=== PATIENT | female | born 1955 | race Caucasian/White ===

== ENCOUNTER 2019-01-06 10:13 | Emergency (ER) | payer MEDICARE, OTHER ==
[~2019-01-06] VITALS: Ht 167.6 cm; Wt 63.5 kg
[2019-01-06] MEDS ORDERED: ONDANSETRON HCL 4MG/2ML INJ IV ONE (10:30)
[2019-01-06] MEDS ORDERED: SODIUM CHLORIDE 0.9% 1,000 ML IV ONE (10:30)
[2019-01-06] MEDS ORDERED: KETOROLAC 30MG/ML VIAL IV STA (10:30)
[2019-01-06 11:56] LABS: HEMATOCRIT. 38.8 % (36.0-48.0); HEMOGLOBIN. 12.4 g/dL (12.0-16.0); MEAN CORPUSCULAR HEMOGLOBIN 27.7 pg (28.0-32.0); MEAN CORPUSCULAR VOLUME 86.8 fL (81.0-99.0); MEAN PLATELET VOLUME 8.4 fl (7.4-10.4); PLATELET 343 x1000/uL (130-400); RED BLOOD CELL COUNT 4.47 mill/uL (4.2-5.4); RED CELL DISTRIBUTION WIDTH 15.6 % (11.6-14.6)
[2019-01-06 12:02] LABS: CHLORIDE 109 mEq/L (98-107)
[2019-01-06 12:12] LABS: PLATELET ESTIMATE NORMAL
[2019-01-06 14:37] LABS: CLARITY URINE CLOUDY (CLEAR); COLOR URINE YELLOW (YELLOW); KETONES URINE NEGATIVE (NEGATIVE); LEUKOCYTE ESTERASE URINE NEGATIVE (NEGATIVE); NITRITE URINE NEGATIVE (NEGATIVE); OCCULT BLOOD URINE TRACE (NEGATIVE); PROTEIN URINE 1+ (NEGATIVE); SPECIFIC GRAVITY URINE 1.019 (1.005-1.030); UROBILINOGEN URINE 0.2 E.U./dL (0.2-1.0)
[2019-01-06 16:00] VITALS: BP 159/68
== END 2019-01-06 16:00 | disposition home or self-care (01) ==
LOC: ER 10:13
DX: N10 Acute pyelonephritis (principal)
CPT/HCPCS: 36415; 74176; 80053; 81003; 83690; 85025; 96361; 96374; 96375; 99284; J1885; J2405; J7030

== ENCOUNTER 2019-08-03 13:50 | Emergency (ER) | payer MEDICAID, MEDICARE, OTHER ==
[~2019-08-03] VITALS: Ht 170.2 cm; Wt 73.0 kg
[2019-08-03] MEDS ORDERED: ENALAPRIL 2.5MG/2ML VIAL 2ML IV ONE (14:15)
[2019-08-03 14:21] LABS: BASOPHILS % 0.7 % (0.0-2.0); EOSINOPHILS % 2.6 % (0.0-5.0); HEMATOCRIT. 31.4 % (36.0-48.0); HEMOGLOBIN. 10.6 g/dL (12.0-16.0); LYMPHOCYTES % 31.2 % (20.0-50.0); MEAN CORPUSCULAR HEMOGLOBIN 28.5 pg (28.0-32.0); MEAN PLATELET VOLUME 8.3 fl (7.4-10.4); MONOCYTES % 8.7 % (2.0-8.0); NEUTROPHILS % 56.8 % (40.0-76.0); PLATELET 381 x1000/uL (130-400); RED BLOOD CELL COUNT 3.74 mill/uL (4.2-5.4); RED CELL DISTRIBUTION WIDTH 14.9 % (11.6-14.6)
[2019-08-03 14:27] LABS: INR 1.1; PARTIAL THROMBOPLASTIN TIME 28.2 sec (23.4-31.0); PROTHROMBIN TIME 11.8 sec (9.6-11.0)
[2019-08-03 14:28] LABS: CHLORIDE 106 mEq/L (98-107)
[2019-08-03] MEDS ORDERED: ENALAPRIL 1.25MG/ML VIAL 1ML IV ONE (14:45)
[2019-08-03] MEDS ORDERED: MECLIZINE 25MG TABLET PO ONE (15:45)
[2019-08-03] MEDS ORDERED: SODIUM CHLORIDE 0.9% 1,000 ML IV ONE (16:14)
[2019-08-03] MEDS ORDERED: LABETALOL 5MG/ML SYR 20 MG/4 ML SYRINGE IV ONE (18:45)
[2019-08-03 19:39] LABS: CLARITY URINE CLEAR (CLEAR); COLOR URINE YELLOW (YELLOW); KETONES URINE NEGATIVE (NEGATIVE); LEUKOCYTE ESTERASE URINE TRACE (NEGATIVE); NITRITE URINE NEGATIVE (NEGATIVE); OCCULT BLOOD URINE NEGATIVE (NEGATIVE); PROTEIN URINE NEGATIVE (NEGATIVE); SPECIFIC GRAVITY URINE 1.011 (1.005-1.030); UROBILINOGEN URINE 0.2 E.U./dL (0.2-1.0)
[2019-08-03 19:44] VITALS: BP 163/54
== END 2019-08-03 20:18 | disposition short-term general hospital (02) ==
LOC: ER 13:50 → CANBEDREQ 16:42 → ER 20:18
DX: R42 Dizziness and giddiness (principal); E11.9 Type 2 diabetes mellitus without complications; E78.00 Pure hypercholesterolemia, unspecified; I10 Essential (primary) hypertension; Z90.10 Acquired absence of unspecified breast and nipple
CPT/HCPCS: 36415; 70450; 71045; 80053; 81003; 82962; 83690; 83880; 84484; 85025; 85610; 85730; 93005; 96374; 96375; 99285; J3490; J7030; J8597

== ENCOUNTER 2022-03-01 07:28 | Emergency (ER) | payer BC, OTHER ==
[~2022-03-01] VITALS: Ht 167.6 cm; Wt 100.0 kg
[2022-03-01 07:37] VITALS: BP 179/65
== END 2022-03-01 09:00 | disposition left against medical advice (07) ==
LOC: ER 07:28
DX: Z53.21 Procedure and treatment not carried out due to patient leaving prior to being seen by health care provider (principal)